=== PATIENT | male | born 1940 | race Caucasian/White ===

== ENCOUNTER → 2017-08-21 | Day surgery (SDC) | payer MEDICARE, BC ==
[~2017-08-21] MED LIST: Lactated Ringers 1,000 ML IV SCH; Propofol 200 MG/20 ML SDV IV ONE
[2017-08-21 11:33] VITALS: BP 148/85
--- NOTE | 2017-08-21 13:06 | OR ---
DATE OF OPERATION: 08/21/2017 PREOPERATIVE DIAGNOSIS: ALTERED BOWEL HABITS. POSTOPERATIVE DIAGNOSIS: ALTERED BOWEL HABITS. SURGEON: Truman Herrera MD PROCEDURE: FULL-LENGTH COLONOSCOPY. ANESTHESIA: ASSISTANT CONSTRUCTION SUPERINTENDENT. COMPLICATIONS: None. SPECIMEN: None. FINDINGS: 1. Normal full-length colonoscopy. 2. Minimal sigmoid diverticulosis. RECOMMENDATIONS: Medical followup with Dr. Dickey. INDICATIONS: The patient has been apparently having some altered bowel habits and abdominal cramping. He did have a C. diff infection in the spring. Dr. Dickey sent him for colonoscopy. DESCRIPTION OF PROCEDURE: The patient was prepped and draped, placed in the left lateral decubitus position. A lubricated Olympus colonoscope was inserted and easily advanced to the cecum. Direct visualization of the ileocecal valve and appendiceal orifice was accomplished. Bowel prep was fine. Upon withdrawal of the scope, throughout the entire length of the colon, I confirmed no signs of any polyps, mass, ulceration, or bleeding sites. No vascular abnormalities or signs of colitis. There were minimal diverticula in the sigmoid area without any inflammatory change. The rectal vault was benign. Retroflexion confirmed a lot of perianal hemorrhoidal tissue, but no active bleeding. Air was suctioned. Scope was removed without complication. NATHALIE/TITA /[id number]
== END ==
LOC: CC.SDS 09:02
PROVIDERS: ATTEND Family Medicine
DX: R19.4 Change in bowel habit (principal); K57.30 Diverticulosis of large intestine without perforation or abscess without bleeding
CPT/HCPCS: J7120

== ENCOUNTER 2018-12-07 11:06 | Observation (INO) | payer MEDICARE, BC ==
[2018-12-07 11:32] LABS: CHLORIDE,CL 103 mEq/L (98-106); SODIUM,NA 140 mEq/L (136-145)
[2018-12-07] MEDS ORDERED: Acetaminophen 325 MG Tab PO PRN (12:11)
[2018-12-07] MEDS ORDERED: Ondansetron 4 MG/2 ML SDV IV PRN (12:11)
[2018-12-07] MEDS: Sodium Chloride 0.9% 1,000 ML IV SCH ×2 (13:33→21:11)
[2018-12-07] MEDS ORDERED: ZOLPIDEM 5 MG PO PRN (17:29)
[2018-12-07] MEDS ORDERED: Metoprolol Succinate 25 MG Tab.ER PO ONE (17:39)
[2018-12-07] MEDS: GEMFIBROZIL 600 MG PO SCH (19:46)
[2018-12-07] MEDS: Mirtazapine 15 MG Tab PO SCH (19:47)
[2018-12-07] MEDS: OXYCODONE PO PRN (22:09)
[2018-12-07] MEDS: ACETAMINOPHEN PO PRN (22:09)
[2018-12-08] MEDS: Sodium Chloride 0.9% 1,000 ML IV SCH (05:28)
[2018-12-08] MEDS ORDERED: Pantoprazole 40 MG Tab.CR PO SCH (07:00)
[2018-12-08] MEDS: OMEPRAZOLE 20 MG PO SCH (07:09)
[2018-12-08] MEDS ORDERED: Metoprolol Succinate 25 MG Tab.ER PO SCH (08:00)
[2018-12-08] MEDS: **PTOM** Lisinopril 10 MG Tab PO SCH (08:06)
[2018-12-08] MEDS: **PTOM** Allopurinol 300 MG Tab PO SCH (08:06)
[2018-12-08] MEDS: GEMFIBROZIL 600 MG PO SCH ×2 (08:07→21:01)
--- NOTE | 2018-12-08 09:08 | PCM.PN ---
- General Info Date of Service: 12/08/18 Admission Dx/Problem (Free Text): Weakness Palpitations Functional Status: Reports: Pain Controlled, Tolerating Diet - Review of Systems General: Reports: Weakness, Fatigue HEENT: Reports: No Symptoms Pulmonary: Denies: Shortness of Breath, Cough Cardiovascular: Denies: Chest Pain, Edema, Lightheadedness Gastrointestinal: Denies: Abdominal Pain, Nausea, Vomiting Genitourinary: Reports: No Symptoms Musculoskeletal: Reports: No Symptoms Skin: Reports: No Symptoms Neurological: Reports: Weakness - Patient Data Vitals - Most Recent: Last Vital Signs Temp 97 F 12/08/18 04:00 Pulse 98 12/08/18 08:05 Resp 18 12/08/18 04:00 BP 145/90 H 12/08/18 08:06 Pulse Ox 98 12/08/18 04:00 Weight - Most Recent: 217 lb I&O - Last 24 Hours: Intake & Output 12/07/18 12/08/18 12/08/18 22:59 06:59 14:59 Intake Total 800 1000 Balance 800 1000 Lab Results Last 24 Hours: Laboratory Results - last 24 hr 12/07/18 12/07/18 12/07/18 Range/Units 11:11 11:11 11:11 WBC 6.8 (5.0-10.0) 10^3/uL RBC 4.58 (4.50-6.00) 10^6/uL Hgb 14.3 (14.0-18.0) g/dL Hct 42.0 (40.0-54.0) % MCV 91.7 (82.0-94.0) fL MCH 31.2 (27.0-32.0) pg MCHC 34.0 (33.0-38.0) g/dL RDW Coeff of Melquiades 13.2 (11.0-15.0) % Plt Count 345 (150-400) 10^3/uL Neut % (Auto) 59.7 (35-85) % Lymph % (Auto) 27.4 (10-55) % [place]ansom % (Auto) 10.3 (0-16) % Eos % (Auto) 2.3 (0-5) % Baso % (Auto) 0.3 (0-3) % Neut # (Auto) 4.07 (1.80-7.00) 10^3/uL Lymph # (Auto) 1.87 (1.00-4.80) 10^3/uL Ransom # (Auto) 0.70 (0.00-0.80) 10^3/uL Eos # (Auto) 0.16 (0.00-0.45) 10^3/uL Baso # (Auto) 0.02 10^3/uL Sodium 140 (136-145) mEq/L Potassium 3.6 (3.5-5.0) mEq/L Chloride 103 (98-106) mEq/L Carbon Dioxide 26 (21-32) mmol/L BUN 15 (7-18) mg/dL Creatinine 1.1 (0.7-1.3) mg/dL Est Cr Clr Drug Dosing TNP Estimated GFR (MDRD) > 60 (>=60) mL/min Glucose 100 H (75-99) mg/dL Calcium 9.7 (8.4-10.1) mg/dL Total Bilirubin 0.9 (0.0-1.0) mg/dL AST 15 (15-37) U/L ALT 16 (12-78) U/L Alkaline Phosphatase 105 (46-116) U/L Creatine Kinase 60 (35-232) U/L Troponin I < 0.017 (0.00-0.06) ng/mL C-Reactive Protein < 0.2 L (0.2-0.8) mg/dL Total Protein 7.8 (6.4-8.2) g/dL Albumin 3.9 (3.4-5.0) g/dL Urine Color Yellow (YELLOW) Urine Appearance Clear (CLEAR) Urine pH 6.0 (4.5-8.0) Ur Specific [place] 1.015 (1.003-1.020) Urine Protein Negative (NEGATIVE) mg/dL Urine Glucose (UA) Negative (NEGATIVE) mg/dL Urine Ketones Negative (NEGATIVE) mg/dL Urine Occult Blood Negative (NEGATIVE) Urine Nitrite Negative (NEGATIVE) Urine Bilirubin Negative (NEGATIVE) Urine Urobilinogen 1.0 (0.2-1.0) EU/dL Ur Leukocyte Esterase Negative (NEGATIVE) 12/08/18 Range/Units 06:46 WBC (5.0-10.0) 10^3/uL RBC (4.50-6.00) 10^6/uL Hgb (14.0-18.0) g/dL Hct (40.0-54.0) % MCV (82.0-94.0) fL MCH (27.0-32.0) pg MCHC (33.0-38.0) g/dL RDW Coeff of Melquiades (11.0-15.0) % Plt Count (150-400) 10^3/uL Neut % (Auto) (35-85) % Lymph % (Auto) (10-55) % Ransom % (Auto) (0-16) % Eos % (Auto) (0-5) % Baso % (Auto) (0-3) % Neut # (Auto) (1.80-7.00) 10^3/uL Lymph # (Auto) (1.00-4.80) 10^3/uL [place]ansom # (Auto) (0.00-0.80) 10^3/uL Eos # (Auto) (0.00-0.45) 10^3/uL Baso # (Auto) 10^3/uL Sodium (136-145) mEq/L Potassium (3.5-5.0) mEq/L Chloride (98-106) mEq/L Carbon Dioxide (21-32) mmol/L BUN (7-18) mg/dL Creatinine (0.7-1.3) mg/dL Est Cr Clr Drug Dosing Estimated GFR (MDRD) (>=60) mL/min Glucose (75-99) mg/dL Calcium (8.4-10.1) mg/dL Total Bilirubin (0.0-1.0) mg/dL AST (15-37) U/L ALT (12-78) U/L Alkaline Phosphatase (46-116) U/L Creatine Kinase (35-232) U/L Troponin I (0.00-0.06) ng/mL C-Reactive Protein (0.2-0.8) mg/dL Total Protein (6.4-8.2) g/dL Albumin (3.4-5.0) g/dL Urine Color Yellow (YELLOW) Urine Appearance Clear (CLEAR) Urine pH 6.5 (4.5-8.0) Ur Specific [place] 1.015 (1.003-1.020) Urine Protein Negative (NEGATIVE) mg/dL Urine Glucose (UA) Negative (NEGATIVE) mg/dL Urine Ketones Negative (NEGATIVE) mg/dL Urine Occult Blood Negative (NEGATIVE) Urine Nitrite Negative (NEGATIVE) Urine Bilirubin Negative (NEGATIVE) Urine Urobilinogen 0.2 (0.2-1.0) EU/dL Ur Leukocyte Esterase Negative (NEGATIVE) Med Orders - Current: Current Medications Acetaminophen (Tylenol) 650 mg PO Q4H PRN PRN Reason: Pain (Mild 1-3)/fever Allopurinol (Zyloprim) 300 mg PO DAILY [facility] Last Admin: 12/08/18 08:06 Dose: 300 mg Apixaban (Eliquis) 5 mg PO BID [facility] Last Admin: 12/08/18 08:07 Dose: 5 mg Gemfibrozil (Lopid) 600 mg PO BID [facility] Last Admin: 12/08/18 08:07 Dose: 600 mg Lisinopril (Prinivil) 20 mg PO DAILY [facility] Last Admin: 12/08/18 08:06 Dose: 20 mg Magnesium Oxide (Magnesium Oxide) 500 mg PO DAILY [facility] Last Admin: 12/08/18 08:05 Dose: 500 mg Metoprolol Succinate (Toprol Xl) 25 mg PO DAILY [facility] Last Admin: 12/08/18 08:05 Dose: 25 mg Mirtazapine (Remeron) 15 mg PO BEDTIME [facility] Last Admin: 12/07/18 19:47 Dose: 15 mg Omeprazole 20mg Pt (Own) 20 each PO ACBREAKFAST [facility] Last Admin: 12/08/18 07:09 Dose: 20 each Ondansetron HCl (Zofran) 8 mg IV Q6H PRN PRN Reason: Nausea/Vomiting Oxycodone/Acetaminophen (Percocet 325-5 Mg) 1 tab PO Q4H PRN PRN Reason: Pain (moderate 4-6) Last Admin: 12/07/18 22:09 Dose: 1 tab Zolpidem Tartrate (Ambien) 12.5 mg PO BEDTIME PRN PRN Reason: Sleep Discontinued Medications Sodium Chloride (Normal Saline) 1,000 mls @ 125 mls/hr IV ASDIRECTED [facility] Last Admin: 12/08/18 05:28 Dose: 125 mls/hr Metoprolol Succinate (Toprol Xl) 25 mg PO ONETIME ONE Stop: 12/07/18 17:40 Last Admin: 12/07/18 18:18 Dose: 25 mg Pantoprazole Sodium (Protonix) 40 mg PO ACBREAKFAST [facility] - Exam General: Alert, Oriented HEENT: Mucous Membr. Moist/[place] Neck: Supple Lungs: Clear to Auscultation, Normal Respiratory Effort Cardiovascular: Irregular Rhythm GI/Abdominal Exam: Normal Bowel Sounds, Soft, Non-Tender Extremities: Normal Inspection, No Pedal Edema Skin: Warm, Dry Neurological: No New Focal Deficit - Problem List & Annotations (1) Weakness SNOMED Code(s): 31877157 Code(s): R53.1 - WEAKNESS Status: Acute Priority: High Current Visit: Yes (2) Palpitations SNOMED Code(s): 31117302 Code(s): R00.2 - PALPITATIONS Status: Acute Priority: High Current Visit: Yes - Problem List Review Problem List Initiated/Reviewed/Updated: Yes - My Orders Last 24 Hours: My Active Orders 12/08/18 08:48 Ambulate [RC] ASDIRECTED - Assessment Assessment:: Weakness Palpitations - Plan Plan:: Patient feeling better today. States achiness is improved today, feels related to getting a good night sleep. Does not feel anxious today. He thinks related to 2 new meds he has been on as of late. Was switched to Remeron yesterday on admit. Telemetry has shown heart rate to drop to 50 at times. Blood pressure stable. Metoprolol was reduced on admit. Exam negative. Will stop IV fluids. Have patient ambulate in halls. Continue cardiac monitoring. Possible discharge home in am.
[2018-12-08] MEDS: Mirtazapine 15 MG Tab PO SCH (21:06)
[2018-12-08] MEDS: OXYCODONE PO PRN (22:19)
[2018-12-08] MEDS: ACETAMINOPHEN PO PRN (22:19)
[2018-12-09] MEDS: OMEPRAZOLE 20 MG PO SCH (06:26)
[2018-12-09] MEDS: **PTOM** Allopurinol 300 MG Tab PO SCH (07:31)
[2018-12-09] MEDS: GEMFIBROZIL 600 MG PO SCH (07:31)
[2018-12-09] MEDS: **PTOM** Lisinopril 10 MG Tab PO SCH (07:32)
[2018-12-09] MEDS ORDERED: METOPROLOL SUCCINATE 50 MG PO SCH (08:00)
[2018-12-09 09:07] VITALS: BP 174/90
--- NOTE | 2018-12-09 21:07 | PCM.DCSUM1 ---
Discharge Summary - Hospital Course Free Text/Narrative:: Patient presented to see Dr. Herrera due to not feeling well for 4 days. Had presented to the local cafe, had breakfast and was feeling good when returned home. Laid down for short nap and awoke not feeling well. Has continued to "feel rotten since". He does not sleep. Feels his heart is racing. Feels abdominal discomfort. Short of breath at times. Has had more difficulty since knee surgery. Was noted to be more anxious and tearful in clinic. Did not feel related to Eliquis. Had complained of palpitations but heart rate noted both times with heart rate in the 60s. [place] possibly not be tolerating beta delilah. Labs done, including CBC, CMP, d-dimer, UA negative. ADmitted and started on IV fluids. Cardiac monitoring. Toprol dose reduced. Started on Remeron, Zolpidem held. Diagnosis: Stroke: No Modified [place] Scale: No Symptoms at All Modified [place] Scale Score: 0 - Discharge Data Discharge Date: 12/09/18 Discharge Disposition: Home, Self-Care 01 Condition: Good - Discharge Diagnosis/Problem(s) (1) Weakness SNOMED Code(s): 04038680 ICD Code: R53.1 - WEAKNESS Status: Acute Priority: High (2) Palpitations SNOMED Code(s): 87825575 ICD Code: R00.2 - PALPITATIONS Status: Acute Priority: High - Patient Summary/Data Complications: none Hospital Course: Patient doing well. Relates fell asleep around 2 am on night of admit, slept well after that and awoke feeling much better. Appetite has been good. Is ambulating in halls without difficulty. Sleeping well with Remeron. industrial specialist does show heart rate of 50s at night, asymptomatic. Labs remained normal. Patient and family do agree has been more anxious and depressed since surgery. Will discharge home on Remeron. Stop zolpidem. Continue on lower dose of Toprol at 25 mg daily. Follow up with Dr. Herrera in 2 weeks. - Patient Instructions Diet: Usual Diet as Tolerated Activity: As Tolerated - Discharge Plan *COPY OF PRESCRIPTION DRUG MONITORING REPORT IN PATIENT TIA: No Prescriptions/Med Rec: Metoprolol Succinate 25 mg PO DAILY #30 tab.er.24h Mirtazapine [Remeron] 15 mg PO BEDTIME #30 tablet Home Medications: Home Meds Gemfibrozil 600 mg PO BID 03/15/16 [History] Lisinopril 20 mg PO DAILY 03/15/16 [History] Omeprazole 20 mg PO DAILY 03/15/16 [History] Ascorbic Acid [Vitamin C] 500 mg PO BEDTIME 04/06/16 [History] Cholecalciferol (Vitamin D3) [Vitamin D3] 5,000 unit PO DAILY 04/06/16 [History] Magnesium 500 mg PO DAILY 04/06/16 [History] Allopurinol [Zyloprim] 300 mg PO DAILY 08/17/17 [History] Apixaban [Eliquis] 1 tab-cap PO BID 12/07/18 [History] oxyCODONE HCl/Acetaminophen [Oxycodone-Acetaminophen 5-325] 1 tab PO Q4HR PRN [History] Metoprolol Succinate 25 mg PO DAILY #30 tab.er.24h 12/09/18 [Rx] Mirtazapine [Remeron] 15 mg PO BEDTIME #30 tablet 12/09/18 [Rx] Oxygen Therapy Mode: Nasal Cannula Referrals: Truman Herrera MD [Primary Care Provider] - (Follow up with Dr. Herrera in 2 weeks) - Discharge Summary/Plan Comment DC Time >30 min.: No - General Info Date of Service: 12/09/18 Admission Dx/Problem (Free Text: Weakness Palpitations Functional Status: Reports: Pain Controlled, Tolerating Diet, Ambulating, Urinating - Review of Systems General: Denies: Weakness, Fatigue, Malaise HEENT: Reports: No Symptoms Pulmonary: Denies: Shortness of Breath, Cough Cardiovascular: Denies: Chest Pain, Palpitations Gastrointestinal: Denies: Abdominal Pain Genitourinary: Reports: No Symptoms Musculoskeletal: Reports: No Symptoms Skin: Reports: No Symptoms Neurological: Reports: Weakness - Patient Data Vitals - Most Recent: Last Vital Signs Temp 98.1 F 12/09/18 08:00 Pulse 88 12/09/18 08:00 Resp 18 12/09/18 08:00 BP 174/90 H 12/09/18 08:00 Pulse Ox 98 12/09/18 08:00 Weight - Most Recent: 217 lb Med Orders - Current: Current Medications Discontinued Medications Acetaminophen (Tylenol) 650 mg PO Q4H PRN PRN Reason: Pain (Mild 1-3)/fever Allopurinol (Zyloprim) 300 mg PO DAILY [facility] Last Admin: 12/09/18 07:31 Dose: 300 mg Apixaban (Eliquis) 5 mg PO BID [facility] Last Admin: 12/09/18 07:31 Dose: 5 mg Gemfibrozil (Lopid) 600 mg PO BID [facility] Last Admin: 12/09/18 07:31 Dose: 600 mg Sodium Chloride (Normal Saline) 1,000 mls @ 125 mls/hr IV ASDIRECTED [facility] Last Admin: 12/08/18 05:28 Dose: 125 mls/hr Lisinopril (Prinivil) 20 mg PO DAILY [facility] Last Admin: 12/09/18 07:32 Dose: 20 mg Magnesium Oxide (Magnesium Oxide) 500 mg PO DAILY [facility] Last Admin: 12/09/18 07:35 Dose: 500 mg Metoprolol Succinate (Toprol Xl) 25 mg PO DAILY [facility] Last Admin: 12/08/18 08:05 Dose: 25 mg Metoprolol Succinate (Toprol Xl) 25 mg PO ONETIME ONE Stop: 12/07/18 17:40 Last Admin: 12/07/18 18:18 Dose: 25 mg Mirtazapine (Remeron) 15 mg PO BEDTIME [facility] Last Admin: 12/08/18 21:06 Dose: 15 mg Omeprazole 20mg Pt (Own) 20 each PO ACBREAKFAST [facility] Last Admin: 12/09/18 06:26 Dose: 20 each Ownmed Metoprolol Succinate 50mg Er 25 mg PO DAILY [facility] Last Admin: 12/09/18 07:32 Dose: 25 mg Ondansetron HCl (Zofran) 8 mg IV Q6H PRN PRN Reason: Nausea/Vomiting Oxycodone/Acetaminophen (Percocet 325-5 Mg) 1 tab PO Q4H PRN PRN Reason: Pain (moderate 4-6) Last Admin: 12/08/18 22:19 Dose: 1 tab Pantoprazole Sodium (Protonix) 40 mg PO ACBREAKFAST [facility] Zolpidem Tartrate (Ambien) 12.5 mg PO BEDTIME PRN PRN Reason: Sleep - Exam General: Reports: Alert, Oriented HEENT: Reports: Mucous Membr. Moist/[place] Neck: Reports: Supple Lungs: Reports: Clear to Auscultation, Normal Respiratory Effort Cardiovascular: Reports: Regular Rate, Regular Rhythm GI/Abdominal Exam: Normal Bowel Sounds, Soft, Non-Tender Extremities: Other (incision to left knee healing well) Skin: Reports: Warm, Dry Neurological: Reports: No New Focal Deficit
== END 2018-12-09 10:35 | disposition home or self-care (01) ==
LOC: CC.FCMC 11:06 → CC.MS 11:06 → UNDOADMOB 11:58 → CC.MS 11:58
PROVIDERS: ADMIT Family Medicine; ATTEND Family Medicine
DX: R53.1 Weakness (principal); R00.2 Palpitations; I48.91 Unspecified atrial fibrillation; I10 Essential (primary) hypertension; K21.9 Gastro-esophageal reflux disease without esophagitis; M10.9 Gout, unspecified; E78.5 Hyperlipidemia, unspecified; G47.00 Insomnia, unspecified; M17.10 Unilateral primary osteoarthritis, unspecified knee; Z79.899 Other long term (current) drug therapy; Z79.01 Long term (current) use of anticoagulants
CPT/HCPCS: 36415; 71046; 80053; 81003; 82550; 84484; 85025; 86140; 93005; 93010; 96360; 96361; 99217; 99219; 99225; A9270-GY; G0378; J7030

== ENCOUNTER 2021-01-20 07:40 | Emergency (ER) | payer MEDICARE, BC ==
[2021-01-20] MEDS ORDERED: Ondansetron 4 MG/2 ML SDV IVPUSH STA (07:49)
[2021-01-20] MEDS ORDERED: Morphine 4 MG/ML VIAL IVPUSH ONE (07:49)
[2021-01-20 08:02] VITALS: PULSE 88
[2021-01-20 08:16] LABS: CHLORIDE,CL 104 mEq/L (98-106); SODIUM,NA 141 mEq/L (136-145)
--- NOTE | 2021-01-20 08:17 | EDM.PDOC ---
ED HPI GENERAL MEDICAL PROBLEM - General Chief Complaint: General Stated Complaint: flank pain Time Seen by Provider: 01/20/21 08:06 Source of Information: Reports: Patient History Limitations: Reports: No Limitations - History of Present Illness INITIAL COMMENTS - FREE TEXT/NARRATIVE: This patient is a 80 year old male that presents to the ER. Patient reports that started at 2am having left flan pain severe. Patient reports he was in route to the hospital at 3am this morning and the pain resolved, so they returned home. He reports then again at 6am having severe let flan pain. Patient reports that he was admitted into [facility] for same pain on Thursday, told he had a large kidney stone. He reports he was there until Thursday, then discharged home. Patient reports that his tube was to narrow so they could not remove the kidney stone. He reports that so they placed a stent and a carver catheter and discharged home. Patient denies any catheter complications. Patient reports he is supposed to have a follow-up appointment on the . Onset: Today Onset Date: 01/20/21 Onset Time: 02:00 Location: Reports: Back Severity: Moderate Improves with: Reports: None Worsens with: Reports: None Associated Symptoms: Denies: Confusion, Chest Pain, Cough, cough w sputum, Diaphoresis, Fever/Chills, Headaches, Loss of Appetite, Malaise, Nausea/Vomiting, Rash, Seizure, Shortness of Breath, Syncope, Weakness Left Flank Pain Score (Numeric/FACES): 9 - Related Data Allergies Allergy/AdvReac Type Severity Reaction Status Date / Time No Known Allergies Allergy Verified 01/20/21 07:50 Home Meds: Home Meds Lisinopril 10 mg PO BID 03/15/16 [History] Omeprazole 20 mg PO DAILY 03/15/16 [History] Ascorbic Acid [Vitamin C] 500 mg PO BEDTIME 04/06/16 [History] Cholecalciferol (Vitamin D3) [Vitamin D3] 5,000 unit PO DAILY 04/06/16 [History] Magnesium 750 mg PO DAILY 04/06/16 [History] allopurinoL [Zyloprim] 300 mg PO DAILY 08/17/17 [History] Aspirin [Aspirin EC] 325 mg PO DAILY 01/20/21 [History] Ciprofloxacin HCl [Cipro] 500 mg PO BID 10 Days #20 tablet 01/20/21 [Rx] Escitalopram [Lexapro] 10 mg PO DAILY 01/20/21 [History] Potassium Chloride 10 meq PO DAILY 01/20/21 [History] Torsemide 20 mg PO DAILY 01/20/21 [History] cephALEXin [Keflex] 500 mg PO QID #28 cap 01/20/21 [Rx] Past Medical History Cardiovascular History: Reports: Hypertension Gastrointestinal History: Reports: Diverticulosis, GERD, Hiatal Hernia Musculoskeletal History: Reports: Other (See Below) - Infectious Disease History Infectious Disease History: Reports: C-Difficile - Past Surgical History HEENT Surgical History: Reports: Tonsillectomy GI Surgical History: Reports: Rema Fundoplication Male Surgical History: Reports: Renal Calculus, Ureteral Stent Neurological Surgical History: Reports: Other (See Below) Other Neurological Surgeries/Procedures: Nail removal from L skull/brain Musculoskeletal Surgical History: Reports: Knee Replacement, Shoulder Replacement Other Musculoskeletal Surgeries/Procedures:: Had left knee replacement 1 month ago in [place]. Social & Family History - Family History Family Medical History: No Pertinent Family History - Tobacco Use Tobacco Use Status *Q: Never Tobacco User - Caffeine Use Caffeine Use: Reports: Coffee - Recreational Drug Use Recreational Drug Use: No ED ROS GENERAL - Review of Systems Review Of Systems: See Below Constitutional: Reports: No Symptoms HEENT: Reports: No Symptoms Respiratory: Reports: No Symptoms Cardiovascular: Reports: No Symptoms Endocrine: Reports: No Symptoms GI/Abdominal: Reports: No Symptoms : Reports: Flank Pain (left). Denies: Discharge, Dysuria, Frequency, Hematuria, Incontinence, Urgency, Urinary Retention, Other (denies catheter complications or pain of testicles or penis or catheter tip location.) Musculoskeletal: Reports: No Symptoms Skin: Reports: No Symptoms Neurological: Reports: No Symptoms Psychiatric: Reports: No Symptoms Hematologic/Lymphatic: Reports: No Symptoms Immunologic: Reports: No Symptoms ED EXAM, GENERAL - Physical Exam Exam: See Below Exam Limited By: No Limitations General Appearance: Alert, WD/WN, No Apparent Distress Nose: Normal Inspection Throat/Mouth: Normal Inspection Head: Atraumatic, Normocephalic Neck: Normal Inspection Respiratory/Chest: No Respiratory Distress, Lungs Clear, Normal Breath Sounds, No Accessory Muscle Use Cardiovascular: Normal Peripheral Pulses, Regular Rate, Rhythm, No Edema, No Gallop, No JVD, No Murmur, No Rub Peripheral Pulses: 2+: Radial (L), Radial (R), Posterior Tibial (L), Posterior Tibial (R) GI/Abdominal: Normal Bowel Sounds, Soft, Non-Tender, No Organomegaly, No Distention, No Abnormal Bruit, No Mass, Pelvis Stable (Male) Exam: Other (catheter intact and no drainage issues. no catheter complications seen.) Back Exam: Normal Inspection, Full Range of Motion. No: CVA Tenderness (L), CVA Tenderness (R) Extremities: Normal Inspection, Normal Range of Motion, Non-Tender, No Pedal Edema, Normal Capillary Refill Neurological: Alert, Oriented, Normal Cognition Psychiatric: Normal Affect, Normal Mood Skin Exam: Warm, Dry, Intact, Normal Color, No Rash Course - Vital Signs Last Recorded V/S: Last Vital Signs Temp 97.6 F 01/20/21 08:00 Pulse 88 01/20/21 08:00 Resp 20 01/20/21 08:00 BP 135/95 H 01/20/21 08:37 Pulse Ox 97 01/20/21 08:00 - Orders/Labs/Meds Orders: Active Orders 24 hr Category Date Time Status Abdomen Pelvis wo Cont [CT] Stat Exams 01/20/21 07:49 Taken CULTURE URINE [RM] Stat Lab 01/20/21 07:49 Received Labs: Laboratory Tests 01/20/21 01/20/21 01/20/21 Range/Units 07:49 08:00 08:00 WBC 8.0 (4.0-11.0) 10^3/uL RBC 4.39 L (4.50-6.00) x10^6/uL Hgb 14.3 (14.0-18.0) g/dL Hct 41.2 L (42.0-52.0) % MCV 93.8 (83.0-97.0) fL MCH 32.6 H (27.0-32.0) pg MCHC 34.7 (32.0-36.0) g/dL RDW Coeff of Melquiades 12.7 (11.0-15.0) % Plt Count 216 (150-400) 10^3/uL Immature Gran % (Auto) 1.7 (0.0-4.9) % Neut % (Auto) 68.9 (41-71) % Lymph % (Auto) 18.3 L (24-44) % [place] % (Auto) 7.9 (0-10) % Eos % (Auto) 3.0 (0-6) % Baso % (Auto) 0.2 (0-1) % Neut # (Auto) 5.52 (1.80-8.00) x10^3/uL Lymph # (Auto) 1.47 (0.60-5.00) 10^3/uL [place] # (Auto) 0.63 (0.00-1.50) 10^3/uL Eos # (Auto) 0.24 (0.00-1.50) 10^3/uL Baso # (Auto) 0.02 (0.00-0.50) 10^3/uL Immature Gran # (Auto) 0.14 (0.00-0.49) 10^3/uL Sodium 141 (136-145) mEq/L Potassium 3.4 L (3.5-5.0) mEq/L Chloride 104 (98-106) mEq/L Carbon Dioxide 24 (21-32) mmol/L BUN 12 (7-18) mg/dL Creatinine 1.1 (0.7-1.3) mg/dL Est Cr Clr Drug Dosing 60.75 mL/min Estimated GFR (MDRD) > 60 (>=60) mL/min Glucose 125 H (75-99) mg/dL Calcium 8.5 (8.4-10.1) mg/dL Total Bilirubin 0.9 (0.0-1.0) mg/dL AST 36 (15-37) U/L ALT 61 (12-78) U/L Alkaline Phosphatase 71 (46-116) U/L Total Protein 7.0 (6.4-8.2) g/dL Albumin 3.3 L (3.4-5.0) g/dL Urine Color Yellow (YELLOW) Urine Appearance Clear (CLEAR) Urine pH 5.5 (4.5-8.0) Ur Specific [place] >= 1.030 H (1.003-1.020) Urine Protein 30 H (NEGATIVE) mg/dL Urine Glucose (UA) Negative (NEGATIVE) mg/dL Urine Ketones Negative (NEGATIVE) mg/dL Urine Occult Blood Large H (NEGATIVE) Urine Nitrite Negative (NEGATIVE) Urine Bilirubin Negative (NEGATIVE) Urine Urobilinogen 0.2 (0.2-1.0) EU/dL Ur Leukocyte Esterase Small H (NEGATIVE) Urine RBC >100 H (0-5) /HPF Urine WBC 0-5 (0-5) /HPF Urine Mucus Moderate H (NOT SEEN) /HPF Meds: Medications Discontinued Medications Generic Name Dose Route Start Last Admin Trade Name Cassandra PRN Reason Stop Dose Admin Hydrocodone Bitart/Acetaminophen 3 packet 01/20/21 10:23 Take Home: Acetaminophen/Hydrocodone 325-5 Mg, 2 Tab Pack PO 01/20/21 10:24 ONETIME ONE Ciprofloxacin 1 packet 01/20/21 10:23 Take Home: Ciprofloxacin 500 Mg Tab, 2 Tab Pack PO 01/20/21 10:24 ONETIME ONE Ketorolac Tromethamine 30 mg 01/20/21 10:16 Ketorolac 30 Mg/Ml Sdv IVPUSH 01/20/21 10:17 ONETIME ONE Morphine Sulfate 4 mg 01/20/21 07:49 01/20/21 07:56 Morphine 4 Mg/Ml Vial IVPUSH 01/20/21 07:50 4 mg ONETIME ONE Administration Ondansetron HCl 4 mg 01/20/21 07:49 01/20/21 07:56 Ondansetron 4 Mg/2 Ml Sdv IVPUSH 01/20/21 07:50 4 mg STAT STA Administration - Radiology Interpretation Free Text/Narrative:: CT Abd/Pelvis without contrast: Stent left in place. Mild hydronephrosis. Left mid ureter 6mm stone, no movement from previous scan. CT Results Date: 01/20/21 CT Results Time: 09:45 - Re-Assessments/Exams Free Text/Narrative Re-Assessment/Exam: 01/20/21 08:29 I gave medication orders to RN via phone prior to my arrival. She reported he looked very uncomfortable. When I enter ER, patient is much more comfortable, sitting on stretcher, interactive. He reports pain is much better, now a 5/10. He reports was a 01/13. 01/20/21 10:[address] Lebron urology at [facility]. He reports patient is having stent pain. He reports to put patient on abx and pain medication and discharge home. He reports patient has surgery scheduled on the . 01/20/21 10:39 Patient has informed us that he is currently taking Cirpro, will switch to Keflex. Patient also reports [place] does not work for him. Will change to Percocet. Departure - Departure Time of Disposition: 10:16 Disposition: Home, Self-Care 01 Condition: Fair Clinical Impression: Ureteral stone with hydronephrosis, UTI, Urinary tract infectious disease - Discharge Information *PRESCRIPTION DRUG MONITORING PROGRAM REVIEWED*: Not Applicable *COPY OF PRESCRIPTION DRUG MONITORING REPORT IN PATIENT TIA: Not Applicable Prescriptions: Ciprofloxacin HCl [Cipro] 500 mg PO BID 10 Days #20 tablet cephALEXin [Keflex] 500 mg PO QID #28 cap Instructions: Hydronephrosis Referrals: Matias Dickey MD [Primary Care Provider] - Forms: ED Department Discharge Additional Instructions: Followup with your urologist as scheduled on the Return to the ER for worsening of condition or any emergent concerns such as fever, vomiting Keflex 500mg 1 pill four times a day for 7 days#28 no refill #4 take home: Sent to pharmacy [facility] Percocet 5/325mg 1-2 pills every 4-6 hours as needed for pain #24 no refill #6 take home STOP TAKING THE CIPRO: START NEW ANTIBIOTIC: DO NOT TECHNICAL PROGRAM MANAGER CIPRO THAT WAS SENT TO PHARMACY Sepsis Event Note (ED) - Evaluation Sepsis Screening Result: No Definite Risk - Focused Exam Vital Signs: Vital Signs Temp Pulse Resp BP Pulse Ox 01/20/21 08:37 135/95 H 01/20/21 08:00 97.6 F 88 20 131/106 H 97 - My Orders Last 24 Hours: My Active Orders 01/20/21 07:49 Abdomen Pelvis wo Cont [CT] Stat CULTURE URINE [RM] Stat - Assessment/Plan Last 24 Hours: My Active Orders 01/20/21 07:49 Abdomen Pelvis wo Cont [CT] Stat CULTURE URINE [RM] Stat Plan: PLEASE SEE RN NOTE FOR PFSH
[2021-01-20 08:38] VITALS: BP 135/95
[2021-01-20] MEDS ORDERED: Ketorolac 30 MG/ML SDV IVPUSH ONE (10:16)
[2021-01-20] MEDS ORDERED: Take Home: Ciprofloxacin 500 MG Tab, 2 Tab Pack PO ONE (10:23)
[2021-01-20] MEDS ORDERED: Take Home: Acetaminophen/HYDROcodone 325-5 MG, 2 Tab Pack PO ONE (10:23)
[2021-01-20] MEDS ORDERED: Take Home: Acetaminophen/oxyCODONE 325-5 MG, 2 Tab Pack PO ONE (10:46)
== END 2021-01-20 11:15 | disposition home or self-care (01) ==
LOC: CC.ED 07:40 → SUPCPDRO 07:40 → CC.ED 11:15
DX: N13.6 Pyonephrosis (principal); I10 Essential (primary) hypertension; K21.9 Gastro-esophageal reflux disease without esophagitis; Z79.82 Long term (current) use of aspirin; Z79.899 Other long term (current) drug therapy
CPT/HCPCS: 36415; 74176; 80053; 81001; 85025; 87086; 96374; 96375; 99284; A9270; J1885; J2270; J2405

== ENCOUNTER 2022-09-11 17:52 | Emergency (ER) | payer MEDICARE, BC ==
[2022-09-11] MEDS: Sodium Chloride 0.9% 1,000 ML IV ONE (18:12)
[2022-09-11 18:22] LABS: BASOPHILS ABSOLUTE AUTO 0.02 10^3/uL (0.00-0.50); BASOPHILS PERCENT AUTO 0.3 % (0-1); EOSINOPHILS ABSOLUTE AUTO 0.29 10^3/uL (0.00-1.50); EOSINOPHILS PERCENT AUTO 4.1 % (0-6); HEMATOCRIT 38.9 % (42.0-52.0); HEMOGLOBIN 12.2 g/dL (14.0-18.0); IMMATURE GRAN ABSOLUTE AUTO 0.06 10^3/uL (0.00-0.49); IMMATURE GRAN PERCENT AUTO 0.8 % (0.0-4.9); LYMPHOCYTES PERCENT AUTO 15.5 % (24-44); MEAN CORPUSCULAR HEMOGLOBIN 25.1 pg (27.0-32.0); MEAN CORPUSCULAR HGB CONC 31.4 g/dL (32.0-36.0); MEAN CORPUSCULAR VOLUME 79.9 fL (83.0-97.0); MONOCYTES ABSOLUTE AUTO 0.76 10^3/uL (0.00-1.50); MONOCYTES PERCENT AUTO 10.7 % (0-10); NEUTROPHILS ABSOLUTE AUTO 4.86 x10^3/uL (1.80-8.00); NEUTROPHILS PERCENT AUTO 68.6 % (41-71); PLATELET COUNT,PLT 225 10^3/uL (150-400); RED BLOOD CELL COUNT 4.87 x10^6/uL (4.50-6.00); WHITE BLOOD CELL COUNT,WBC 7.1 10^3/uL (4.0-11.0)
[2022-09-11 18:25] VITALS: BP 171/97; PULSE 56
[2022-09-11 18:30] LABS: INR 1.11 (0.92-1.18); PROTHROMBIN TIME 11.4 SEC (9.3-11.3); PTT,PARTIAL THROMBOPLSTIN TIME 24.8 SEC (20.0-30.0)
[2022-09-11 18:39] LABS: ALBUMIN 3.6 g/dL (3.4-5.0); BILIRUBIN TOTAL 0.6 mg/dL (0.0-1.0); CALCIUM 8.2 mg/dL (8.4-10.1); CREATININE 1.3 mg/dL (0.7-1.3); EST CRCL DRUG DOSING (CG) 49.74 mL/min; MAGNESIUM 1.8 mg/dL (1.8-2.4); POTASSIUM,K 3.7 mEq/L (3.5-5.0); PROTEIN TOTAL,TP 6.9 g/dL (6.4-8.2)
== END 2022-09-11 20:10 | disposition home or self-care (01) ==
LOC: CC.ED 17:52
DX: R51.9 Headache, unspecified (principal); K21.9 Gastro-esophageal reflux disease without esophagitis; I10 Essential (primary) hypertension; Z88.8 Allergy status to other drugs, medicaments and biological substances; Z79.899 Other long term (current) drug therapy; Z79.82 Long term (current) use of aspirin
CPT/HCPCS: 36415; 70450; 71045; 80053; 83735; 84484; 85025; 85610; 85730; 93005; 93010; 96360; 99284; 99284-25; J7030

== ENCOUNTER 2023-07-26 18:00 | Emergency (ER) | payer MEDICARE, BC ==
[2023-07-26 18:15] VITALS: BP 160/79; PULSE 56
[2023-07-26] MEDS: Ketorolac 30 MG/ML SDV IM ONE (18:25)
== END 2023-07-26 19:20 | disposition home or self-care (01) ==
LOC: CC.ED 18:00
DX: M54.2 Cervicalgia (principal); I10 Essential (primary) hypertension; K21.9 Gastro-esophageal reflux disease without esophagitis; I48.91 Unspecified atrial fibrillation; Z88.8 Allergy status to other drugs, medicaments and biological substances; Z88.1 Allergy status to other antibiotic agents; Z79.899 Other long term (current) drug therapy
CPT/HCPCS: 72040; 96372; 99283; 99284; J1885

== ENCOUNTER 2023-11-01 02:50 | Emergency (ER) | payer MEDICARE, BC ==
[2023-11-01 03:51] LABS: BASOPHILS ABSOLUTE AUTO 0.02 10^3/uL (0.00-0.50); BASOPHILS PERCENT AUTO 0.2 % (0-1); EOSINOPHILS ABSOLUTE AUTO 0.21 10^3/uL (0.00-1.50); EOSINOPHILS PERCENT AUTO 1.9 % (0-6); HEMATOCRIT 39.6 % (42.0-52.0); HEMOGLOBIN 13.5 g/dL (14.0-18.0); IMMATURE GRAN ABSOLUTE AUTO 0.25 10^3/uL (0.00-0.49); IMMATURE GRAN PERCENT AUTO 2.2 % (0.0-4.9); LYMPHOCYTES ABSOLUTE AUTO 1.39 10^3/uL (0.60-5.00); LYMPHOCYTES PERCENT AUTO 12.4 % (24-44); MEAN CORPUSCULAR HGB CONC 34.1 g/dL (32.0-36.0); MONOCYTES ABSOLUTE AUTO 1.04 10^3/uL (0.00-1.50); MONOCYTES PERCENT AUTO 9.3 % (0-10); NEUTROPHILS ABSOLUTE AUTO 8.32 x10^3/uL (1.80-8.00); PLATELET COUNT,PLT 230 10^3/uL (150-400); RED BLOOD CELL COUNT 4.35 x10^6/uL (4.50-6.00); WHITE BLOOD CELL COUNT,WBC 11.2 10^3/uL (4.0-11.0)
[2023-11-01 04:05] VITALS: BP 155/95; PULSE 71
[2023-11-01 04:05] LABS: ALANINE AMINOTRANSFERASE,ALT 28 U/L (12-78); ALBUMIN 3.7 g/dL (3.4-5.0); ALKALINE PHOSPHATASE 73 U/L (46-116); ASPARTATE AMNIOTRANSFERASE,AST 21 U/L (15-37); BILIRUBIN TOTAL 1.1 mg/dL (0.0-1.0); BLOOD UREA NITROGEN,BUN 19 mg/dL (7-18); CARBON DIOXIDE,CO2 24 mmol/L (21-32); CHLORIDE,CL 103 mEq/L (98-106); CREATININE 1.3 mg/dL (0.7-1.3); GLUCOSE RANDOM 130 mg/dL (75-99); LIPASE 34 U/L (16-77); POTASSIUM,K 4.1 mEq/L (3.5-5.0); PROTEIN TOTAL,TP 7.2 g/dL (6.4-8.2); SODIUM,NA 139 mEq/L (136-145)
[2023-11-01 04:06] LABS: C-REACTIVE PROTEIN < 0.50 mg/dL (<=0.50); ESTIMATED GFR 55 mL/min (>=60)
[2023-11-01] MEDS: HYDROmorphone 0.5 MG/0.5 ML Syringe IVPUSH STA (04:25)
[2023-11-01] MEDS: Ondansetron 4 MG/2 ML SDV IVPUSH STA (04:25)
[2023-11-01 04:58] LABS: APPEARANCE,URINE CLOUDY (CLEAR); BILIRUBIN,URINE NEGATIVE (NEGATIVE); COLOR,URINE DARK YELLOW (YELLOW); GLUCOSE,URINE NEGATIVE (NEGATIVE); KETONES,URINE TRACE mg/dL (NEGATIVE); LEUKOCYTE ESTERASE,URINE NEGATIVE (NEGATIVE); NITRITE,URINE NEGATIVE (NEGATIVE); OCCULT BLOOD,URINE LARGE (NEGATIVE); PH,URINE 5.5 (4.5-8.0); PROTEIN,URINE 30 mg/dL (NEGATIVE); UROBILINOGEN,URINE 0.2 EU/dL (0.2-1.0)
[2023-11-01 05:07] LABS: BACTERIA,URINE FEW /HPF (NOT SEEN); RBC,URINE >100 /HPF (0-5); SQUAMOUS EPITHELIAL CELLS,UR FEW /HPF (NOT SEEN); WBC,URINE 0-5 /HPF (0-5)
[2023-11-01] MEDS: Iopamidol 755 Mg/ML 100 ML Bottle IVPUSH ONE (05:12)
== END 2023-11-01 06:45 | disposition home or self-care (01) ==
LOC: CC.ED 02:50
DX: R10.31 Right lower quadrant pain (principal); R11.0 Nausea; I10 Essential (primary) hypertension; I48.91 Unspecified atrial fibrillation; Z79.82 Long term (current) use of aspirin; Z79.899 Other long term (current) drug therapy; Z88.8 Allergy status to other drugs, medicaments and biological substances
CPT/HCPCS: 36415; 74177; 80053; 81001; 83690; 85025; 86140; 96374; 96375; 99284; 99284-25; J1170; J2405; Q9967

== ENCOUNTER 2023-11-12 09:25 | Emergency (ER) | payer MEDICARE, BC ==
[2023-11-12 17:14] VITALS: BP 94/60; PULSE 76
== END 2023-11-12 11:30 | disposition home or self-care (01) ==
LOC: CC.ED 09:25
DX: M25.551 Pain in right hip (principal); I10 Essential (primary) hypertension; K21.9 Gastro-esophageal reflux disease without esophagitis; I48.91 Unspecified atrial fibrillation; Z88.8 Allergy status to other drugs, medicaments and biological substances; Z79.82 Long term (current) use of aspirin; Z79.899 Other long term (current) drug therapy
CPT/HCPCS: 99285